=== PATIENT | female | born 1985 ===

== ENCOUNTER 2023-11-09 16:47 | Emergency (ER) | payer OTHER ==
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
[2023-11-09 17:17] VITALS: RESP 18; TEMP 98.6
[2023-11-09] MEDS: KETOROLAC 15 MG/ML 1 ML VIAL IM STA (18:09)
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
[2023-11-09 19:07] VITALS: BP 110/78; PULSE 88
== END 2023-11-09 19:04 | disposition home or self-care (01) ==
LOC: EC 16:47
DX: S80.02XA Contusion of left knee, initial encounter (principal); F17.290 Nicotine dependence, other tobacco product, uncomplicated; F12.90 Cannabis use, unspecified, uncomplicated; Z86.59 Personal history of other mental and behavioral disorders; Z88.8 Allergy status to other drugs, medicaments and biological substances; Z88.5 Allergy status to narcotic agent; V89.2XXA Person injured in unspecified motor-vehicle accident, traffic, initial encounter; Y92.410 Unspecified street and highway as the place of occurrence of the external cause
CPT/HCPCS: 72050; 73562; 99283; 96372; J1885

== ENCOUNTER 2023-11-10 14:53 | Emergency (ER) | payer OTHER ==
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
[2023-11-10 15:35] VITALS: RESP 18; TEMP 98
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
[2023-11-10] MEDS: CYCLOBENZAPRINE 10MG STARTER 3 TAB BTL PO STA (17:55)
[2023-11-10] MEDS: KETOROLAC 15 MG/ML 1 ML VIAL IM STA (17:56)
[2023-11-10] MEDS: IBUPROFEN 600 MG STARTER PACK 4 TAB BTL PO STA (17:56)
[2023-11-10 18:25] VITALS: BP 107/75; PULSE 78
== END 2023-11-10 18:17 | disposition home or self-care (01) ==
LOC: EC 14:53
DX: M79.605 Pain in left leg (principal); F17.290 Nicotine dependence, other tobacco product, uncomplicated; F12.90 Cannabis use, unspecified, uncomplicated; Z86.59 Personal history of other mental and behavioral disorders; Z88.5 Allergy status to narcotic agent; Z88.6 Allergy status to analgesic agent; V89.2XXA Person injured in unspecified motor-vehicle accident, traffic, initial encounter; Y92.410 Unspecified street and highway as the place of occurrence of the external cause
CPT/HCPCS: 73590; 99284; 96372; J1885

== ENCOUNTER 2024-12-16 10:53 | Emergency (ER) | payer OTHER ==
[2024-12-16 11:05] VITALS: RESP 18
--- NOTE | 2024-12-16 11:45 | ED ---
General Adult HPI - General Chief complaint: Recheck/Abnormal Lab/Rx Stated complaint: L foot issue Time Seen by Provider: 12/16/24 11:44 Source: patient, RN notes reviewed Mode of arrival: ambulatory Limitations: no limitations - History of Present Illness Initial comments: 39-year-old female presenting for left foot redness x 2 days. Reports redness, pain, and swelling on ventral aspect of left foot that is spreading proximally. Believes she may have stepped on something as she recently moved and reports there has been glass on the ground however does not recall a specific incident. She recalls a small "pimple" on the bottom of her foot 2 days ago that she squeezed and small amount of white pus was drained. Denies fever, chills, vomiting. No issues with range of motion. Last tetanus greater than 20 years. - Related Data Previous Rx's Medication Instructions Recorded Cephalexin [Keflex] 500 mg PO Q12HR #12 cap 12/22/14 Hydrocodone/Acetaminophen [[place] 1 each PO Q6HR PRN #10 tab 12/22/14 5-325] Cyclobenzaprine [Flexeril] 10 mg PO TID PRN #15 tab 11/10/23 Ibuprofen 600 mg PO Q8H PRN #30 tab 11/10/23 Ibuprofen [Motrin] 800 mg PO Q6HR #30 tab 12/16/24 Allergies Allergy/AdvReac Type Severity Reaction Status Date / Time acetaminophen Allergy Unknown Verified 12/16/24 11:05 [From Tylenol-Codeine #3] codeine phosphate Allergy Unknown Verified 12/16/24 11:05 [From Tylenol-Codeine #3] Review of Systems ROS Statement: Those systems with pertinent positive or pertinent negative responses have been documented in the HPI. ROS Other: All systems not noted in ROS Statement are negative. Past Medical History Past Medical History: No Reported History History of Any Multi-Drug Resistant Organisms: None Reported Additional Past Surgical History / Comment(s): lump in breast and abdomen removed, fx left arm Past Psychological History: Anxiety Smoking Status: Vaper Past Alcohol Use History: Occasional Past Drug Use History: Marijuana General Exam - General Exam Comments Initial Comments: Visual Physical Exam Vital signs reviewed General: Well-appearing, nontoxic, no acute distress. Head: Normocephalic, atraumatic Eyes: PERRLA, EOMI ENT: Airway patent Chest: Nonlabored breathing Skin: No visual rash, normal skin tone Neuro: Alert and oriented 3 Musculoskeletal: No gross abnormalities Limitations: no limitations General appearance: alert, in no apparent distress Head exam: Present: atraumatic, normocephalic, normal inspection Eye exam: Present: normal appearance, PERRL, EOMI. Absent: scleral icterus, conjunctival injection, periorbital swelling Left Ankle exam: Present: normal inspection, full ROM. Absent: tenderness, swelling Foot/Toe exam: Present: full ROM, tenderness, swelling, erythema, puncture wound. Absent: normal inspection (Mild erythema, warmth, and tenderness present on dorsal aspect of distal left foot, no distinct borders, no active drainage. There is a pinpoint puncture wound on the ventral aspect of foot with no active bleeding or drainage), abrasion, laceration Neurovascular tendon exam: Present: no vascular compromise. Absent: pulse deficit, abnormal cap refill, motor deficit, sensory deficit Neurological exam: Present: alert, oriented X3 Psychiatric exam: Present: normal affect, normal mood Skin exam: Present: warm, dry, intact, normal color. Absent: rash Course Vital Signs 12/16/24 11:00 Temperature 97.5 F L Pulse Rate 76 Respiratory 18 Rate Blood Pressure 115/74 O2 Sat by Pulse 98 Oximetry Medical Decision Making - Medical Decision Making I completed the quick note portion of this chart signed Liza Carson PA-C Was pt. sent in by a medical professional or institution ([facility], AIR QUALITY CHEMIST, urgent care, hospital, or [facility]...) When possible be specific @ -No Did you speak to anyone other than the patient for history (EMS, parent, family, police, friend...)? What history was obtained from this source @ -No Did you review nursing and triage notes (agree or disagree)? Why? @ -I reviewed and agree with nursing and triage notes Were old charts reviewed (outside hosp., previous admission, EMS record, old EKG, old radiological studies, urgent care reports/EKG's, [facility] records)? Report findings @ -No old charts were reviewed Differential Diagnosis (chest pain, altered mental status, abdominal pain women, abdominal pain men, vaginal bleeding, weakness, fever, dyspnea, syncope, headache, dizziness, GI bleed, back pain, seizure, CVA, palpatations, mental health, musculoskeletal)? @ -Differential Musculoskeletal Muscular strain, contusion, ligament sprain, fracture, arthritis, septic arthritis, bursitis, cellulitis, muscle spasm, nerve compression, DVT, arterial occlusion, herpes zoster, electrolyte abnormality, tumor.... This is not meant to be in all inclusive list EKG interpreted by me (3pts min.). @ -None X-rays interpreted by me (1pt min.). @ -None done CT interpreted by me (1pt min.). @ -None done U/S interpreted by me (1pt. min.). @ -None done What testing was considered but not performed or refused? (CT, X-rays, U/S, labs)? Why? @ -None What meds were considered but not given or refused? Why? @ -None Did you discuss the management of the patient with other professionals (professionals i.e. , PA, AIR QUALITY CHEMIST, lab, RT, psych nurse, vp digital marketing social media and crm, phone screener, teacher, motorcycle police officer, caser in)? Give summary @ -No Was smoking cessation discussed for >3mins.? @ -No Was critical care preformed (if so, how long)? @ -No Were there social determinants of health that impacted care today? How? (Homelessness, low income, unemployed, alcoholism, drug addiction, transportation, low edu. Level, literacy, decrease access to med. care, penitentiary, rehab)? @ -No Was there de-escalation of care discussed even if they declined (Discuss DNR or withdrawal of care, Hospice)? DNR status @ -No What co-morbidities impacted this encounter? (DM, HTN, Smoking, COPD, CAD, Cancer, CVA, ARF, Chemo, Hep., AIDS, mental health diagnosis, sleep apnea, morbid obesity)? @ -None Was patient admitted / discharged? Hospital course, mention meds given and route, prescriptions, significant lab abnormalities, going to OR and other pertinent info. @ -Discharge. 39-year-old female presenting for left foot swelling x 2 days. Patient is afebrile, nontachycardic. There is an area of erythema, warmth, and tenderness on distal aspect of left foot with pinpoint puncture wound on ventral aspect of left foot. No sign of foreign body. Neurovascularly intact. No fl uctuance or active drainage. Tetanus is updated. Provided with dose of Toradol for supportive care. Lab work remarkable for white blood cell count 10.9 otherwise unremarkable. Will provide outpatient prescription for antibiotic with Pseudomonas coverage due to cellulitis with puncture wound. Ciprofloxacin prescribed to pharmacy. Appropriate return precautions and follow-up care discussed. Case was discussed with my ED attending Dr. Mckeon. Undiagnosed new problem with uncertain prognosis? @ -No Drug Therapy requiring intensive monitoring for toxicity (Heparin, Nitro, Insulin, Cardizem)? @ -No Were any procedures done? @ -No Diagnosis/symptom? @ -Left foot cellulitis, left foot puncture wound Acute, or Chronic, or Acute on Chronic? @ -Acute Uncomplicated (without systemic symptoms) or Complicated (systemic symptoms)? @ -Uncomplicated Side effects of treatment? @ -No Exacerbation, Progression, or Severe Exacerbation? @ -No Poses a threat to life or bodily function? How? (Chest pain, [place], [place], pneumonia, PE, COPD, DKA, ARF, appy, cholecystitis, CVA, Diverticulitis, Homicidal, Suicid al, threat to staff... and all critical care pts) @ -Not at this time - Lab Data Result diagrams: 12/16/24 12:19 12/16/24 12:19 Lab Results 12/16/24 12/16/24 Range/Units 12:19 12:19 WBC 10.9 H (3.8-10.6) k/uL RBC 4.32 (3.80-5.40) m/uL Hgb 13.5 (11.4-16.0) gm/dL Hct 40.7 (34.0-46.0) % MCV 94.2 (80.0-100.0) fL MCH 31.2 (25.0-35.0) pg MCHC 33.1 (31.0-37.0) g/dL RDW 12.6 (11.5-15.5) % Plt Count 318 (150-450) k/uL MPV 7.0 Neutrophils % 84 % Lymphocytes % 9 % Monocytes % 3 % Eosinophils % 2 % Basophils % 0 % Neutrophils # 9.2 H (1.3-7.7) k/uL Lymphocytes # 1.0 (1.0-4.8) k/uL Monocytes # 0.4 (0-1.0) k/uL Eosinophils # 0.2 (0-0.7) k/uL Basophils # 0.0 (0-0.2) k/uL Sodium 140 (137-145) mmol/L Potassium 3.8 (3.5-5.1) mmol/L Chloride 104 (98-107) mmol/L Carbon Dioxide 27 (22-30) mmol/L Anion Gap 9 mmol/L BUN 14 (7-17) mg/dL Creatinine 0.60 (0.52-1.04) mg/dL Est GFR (CKD-EPI)AfAm >90 (>60 ml/min/1.73 sqM) Est GFR (CKD-EPI)NonAf >90 (>60 ml/min/1.73 sqM) Glucose 113 H (74-99) mg/dL Calcium 9.8 (8.4-10.2) mg/dL Total Bilirubin 0.7 (0.2-1.3) mg/dL AST 26 (14-36) U/L ALT 19 (4-34) U/L Alkaline Phosphatase 79 (38-126) U/L Total Protein 7.7 (6.3-8.2) g/dL Albumin 4.6 (3.5-5.0) g/dL Disposition Clinical Impression: Cellulitis of left foot, Puncture wound of foot Disposition: HOME SELF-CARE Condition: Stable Instructions (If sedation given, give patient instructions): Cellulitis (ED), Puncture Wound in the Foot (ED) Additional Instructions: Take ciprofloxacin twice daily for 7 days. Alternate ibuprofen and Tylenol as needed for pain. Please return to the Emergency Department if symptoms worsen or any other concerns. Prescriptions: Ibuprofen [Motrin] 800 mg PO Q6HR #30 tab Is patient prescribed a controlled substance at d/c from ED?: No Referrals: Ga Holden MD [Primary Care Provider] - 1-2 days Time of Disposition: 13:18
[2024-12-16 12:28] LABS: Basophils % (A) 0 %; Eosinophils # (A) 0.2 k/uL (0-0.7); Eosinophils % (A) 2 %; HCT 40.7 % (34.0-46.0); HGB 13.5 gm/dL (11.4-16.0); Lymphocytes % (A) 9 %; MCH 31.2 pg (25.0-35.0); MCHC 33.1 g/dL (31.0-37.0); MCV 94.2 fL (80.0-100.0); Monocytes # (A) 0.4 k/uL (0-1.0); Monocytes % (A) 3 %; Neutrophils # (A) 9.2 k/uL (1.3-7.7); Neutrophils % (A) 84 %; Platelet Count 318 k/uL (150-450); RBC 4.32 m/uL (3.80-5.40); RDW 12.6 % (11.5-15.5); WBC 10.9 k/uL (3.8-10.6)
[2024-12-16 12:38] LABS: ALT 19 U/L (4-34); AST 26 U/L (14-36); African American GFR (CKD) >90 (>60 ml/min/1.73 sqM); Albumin 4.6 g/dL (3.5-5.0); Alkaline Phosphatase 79 U/L (38-126); Anion Gap 9 mmol/L; Blood Urea Nitrogen 14 mg/dL (7-17); Calcium 9.8 mg/dL (8.4-10.2); Carbon Dioxide 27 mmol/L (22-30); Chloride 104 mmol/L (98-107); Glucose 113 mg/dL (74-99); Non-African American GFR(CKD) >90 (>60 ml/min/1.73 sqM); Potassium 3.8 mmol/L (3.5-5.1); Sodium 140 mmol/L (137-145); Total Bilirubin 0.7 mg/dL (0.2-1.3); Total Protein 7.7 g/dL (6.3-8.2)
[2024-12-16] MEDS: DIPH,PERTUS(ACELL)TETVAC-LF 0.5 ML VIAL IM ONE (12:58)
[2024-12-16] MEDS: KETOROLAC 15 MG/ML 1 ML VIAL IVP STA (12:59)
[2024-12-16 13:40] VITALS: BP 111/74; PULSE 62; TEMP 98.4
== END 2024-12-16 13:53 | disposition home or self-care (01) ==
LOC: EC 10:53
DX: S91.332A Puncture wound without foreign body, left foot, initial encounter (principal); L03.116 Cellulitis of left lower limb; F17.290 Nicotine dependence, other tobacco product, uncomplicated; Z23 Encounter for immunization; Z88.5 Allergy status to narcotic agent; Z88.6 Allergy status to analgesic agent; W22.8XXA Striking against or struck by other objects, initial encounter
CPT/HCPCS: 36415; 80053; 85025; 90715; 99283; 96374; 90471; J1885

== ENCOUNTER 2024-12-19 11:00 | Inpatient (IN) | payer OTHER ==
--- NOTE | 2024-12-19 11:28 | ED ---
Extremity Problem HPI - General Chief complaint: Extremity Problem,Nontraumatic Stated complaint: Recheck-L foot issue Time Seen by Provider: 12/19/24 11:28 Source: patient, RN notes reviewed, old records reviewed Mode of arrival: wheelchair - History of Present Illness Initial comments: 39-year-old female presenting for left foot infection. States she believes she may have stepped on something approximately a week ago. She was seen in the ER 3 days ago for same complaint and was placed on ciprofloxacin. Was seen by Dr. Holden yesterday and placed on Augmentin as well. States she is having increased pain, swelling, and redness and is unable to walk on the left foot due to pain. Tetanus was updated 3 days ago. Reports an episode of vomiting this morning, denies fevers. - Related Data Previous Rx's Medication Instructions Recorded Cephalexin [Keflex] 500 mg PO Q12HR #12 cap 12/22/14 Hydrocodone/Acetaminophen [[place] 1 each PO Q6HR PRN #10 tab 12/22/14 5-325] Cyclobenzaprine [Flexeril] 10 mg PO TID PRN #15 tab 11/10/23 Ibuprofen 600 mg PO Q8H PRN #30 tab 11/10/23 Ciprofloxacin HCl [Cipro] 500 mg PO Q12HR 7 Days #14 tablet 12/16/24 Ibuprofen [Motrin] 800 mg PO Q6HR #30 tab 12/16/24 Allergies Allergy/AdvReac Type Severity Reaction Status Date / Time acetaminophen Allergy Unknown Verified 12/19/24 11:13 [From Tylenol-Codeine #3] codeine phosphate Allergy Unknown Verified 12/19/24 11:13 [From Tylenol-Codeine #3] Review of Systems ROS Statement: Those systems with pertinent positive or pertinent negative responses have been documented in the HPI. ROS Other: All systems not noted in ROS Statement are negative. Past Medical History Past Medical History: No Reported History History of Any Multi-Drug Resistant Organisms: None Reported Additional Past Surgical History / Comment(s): lump in breast and abdomen removed, fx left arm Past Psychological History: Anxiety Smoking Status: Vaper Past Alcohol Use History: Occasional Past Drug Use History: Marijuana General Exam General appearance: alert, in no apparent distress Head exam: Present: atraumatic, normocephalic, normal inspection Eye exam: Present: normal appearance, PERRL, EOMI. Absent: scleral icterus, conjunctival injection, periorbital swelling Left Lower Leg exam: Present: normal inspection, full ROM. Absent: tenderness, swelling Ankle exam: Present: normal inspection, full ROM. Absent: tenderness, swelling Foot/Toe exam: Present: full ROM, tenderness, erythema (.), puncture wound. Absent: normal inspection (Puncture wound on ventral aspect of left foot with mild surrounding erythema. There is erythema and warmth present from mid to dis yoselin dorsal foot), swelling, abrasion, laceration Neurovascular tendon exam: Present: no vascular compromise. Absent: pulse deficit, abnormal cap refill, motor deficit, sensory deficit Neurological exam: Present: alert, oriented X3 Psychiatric exam: Present: normal affect, normal mood Skin exam: Present: warm, dry, intact, normal color Course Vital Signs 12/19/24 11:05 Temperature 98 F Pulse Rate 69 Respiratory 18 Rate Blood Pressure 118/70 O2 Sat by Pulse 100 Oximetry Medical Decision Making - Medical Decision Making Was pt. sent in by a medical professional or institution ([facility], GARMENT TAG STRINGER, urgent care, hospital, or half-way...) When possible be specific @ -No Did you speak to anyone other than the patient for history (EMS, parent, family, police, friend...)? What history was obtained from this source @ -No Did you review nursing and triage notes (agree or disagree)? Why? @ -I reviewed and agree with nursing and triage notes Were old charts reviewed (outside hosp., previous admission, EMS record, old EKG, old radiological studies, urgent care reports/EKG's, half-way records)? Report findings @ -Reviewed ER note from 3 days ago including lab work which revealed white blood cell count 11 Differential Diagnosis (chest pain, altered mental status, abdominal pain women, abdominal pain men, vaginal bleeding, weakness, fever, dyspnea, syncope, headache, dizziness, GI bleed, back pain, seizure, CVA, palpatations, mental health, musculoskeletal)? @ -Differential Musculoskeletal Muscular strain, contusion, ligament sprain, fracture, arthritis, septic arth ritis, bursitis, cellulitis, muscle spasm, nerve compression, DVT, arterial occlusion, herpes zoster, electrolyte abnormality, tumor.... This is not meant to be in all inclusive list EKG interpreted by me (3pts min.). @ -None X-rays interpreted by me (1pt min.). @ -X-ray left foot reveals no evidence for osteomyelitis or foreign body CT interpreted by me (1pt min.). @ -None done U/S interpreted by me (1pt. min.). @ -None done What testing was considered but not performed or refused? (CT, X-rays, U/S, labs)? Why? @ -None What meds were considered but not given or refused? Why? @ -None Did you discuss the management of the patient with other professionals (professionals i.e. , PA, GARMENT TAG STRINGER, lab, RT, psych nurse, workers compensation claims assistant, marketing production specialist, teacher, zoology technical officer, continuous pillowcase cutter)? Give summary @ -Dr. Mckeon spoke to Dr. Holden who accepts admission for left foot cellulitis with failed outpatient antibiotic Was smoking cessation discussed for >3mins.? @ -No Was critical care preformed (if so, how long)? @ -No Were there social determinants of health that impacted care today? How? (Homelessness, low income, unemployed, alcoholism, drug addiction, transportation, low edu. Level, literacy, decrease access to med. care, shelter, rehab)? @ -No Was there de-escalation of care discussed even if they declined (Discuss DNR or withdrawal of care, Hospice)? DNR status @ -No What co-morbidities impacted this encounter? (DM, HTN, Smoking, COPD, CAD, Cancer, CVA, ARF, Chemo, Hep., AIDS, mental health diagnosis, sleep apnea, morbid obesity)? @ -None Was patient admitted / discharged? Hospital course, mention meds given and route, prescriptions, significant lab abnormalities, going to OR and other pertinent info. @ - discharge. 39-year-old female presenting for left foot infection. She was placed on ciprofloxacin 3 days ago in the ER and Augmentin yesterday by her PCP however reports symptoms are worsening. Patient is afebrile, nontachycardic. There is a ventral puncture wound with surrounding erythema and erythema on dorsal aspect of foot from mid to distal left foot. Infection seems to be slightly worse than during ER visit 3 days ago. Provided dose of Toradol for pain. Lab work remarkable for leukocytosis of 16 increased from value of 10 3 days ago. CRP 4.9. Lactic acid normal. X-ray left foot reveals no evidence for osteomyelitis or foreign body. Blood cultures were taken and patient was started on IV Zosyn with ID consult. Case was discussed with my ED attending Dr. Mckeon. Undiagnosed new problem with uncertain prognosis? @ -No Drug Therapy requiring intensive monitoring for toxicity (Heparin, Nitro, Insulin, Cardizem)? @ -No Were any procedures done? @ -No Diagnosis/symptom? @ -Left foot cellulitis, failed outpatient treatment Acute, or Chronic, or Acute on Chronic? @ -Acute Uncomplicated (without systemic symptoms) or Complicated (systemic symptoms)? @ -Complicated Side effects of treatment? @ -No Exacerbation, Progression, or Severe Exacerbation? @ -No Poses a threat to life or bodily function? How? (Chest pain, [place], [place], pneumonia, PE, COPD, DKA, ARF, appy, cholecystitis, CVA, Diverticulitis, Homicidal, Suicidal, threat to staff... and all critical care pts) @ -Yes - Lab Data Result diagrams: 12/19/24 11:36 12/19/24 11:36 Lab Results 12/19/24 12/19/24 12/19/24 Range/Units 11:36 11:36 11:36 WBC 16.3 H (3.8-10.6) k/uL RBC 4.23 (3.80-5.40) m/uL Hgb 12.8 (11.4-16.0) gm/dL Hct 39.7 (34.0-46.0) % MCV 93.9 (80.0-100.0) fL MCH 30.3 (25.0-35.0) pg MCHC 32.3 (31.0-37.0) g/dL RDW 12.3 (11.5-15.5) % Plt Count 340 (150-450) k/uL MPV 7.0 Neutrophils % 88 % Lymphocytes % 6 % Monocytes % 4 % Eosinophils % 1 % Basophils % 0 % Neutrophils # 14.4 H (1.3-7.7) k/uL Lymphocytes # 1.0 (1.0-4.8) k/uL Monocytes # 0.6 (0-1.0) k/uL Eosinophils # 0.2 (0-0.7) k/uL Basophils # 0.0 (0-0.2) k/uL Sodium 137 (137-145) mmol/L Potassium 3.4 L (3.5-5.1) mmol/L Chloride 100 (98-107) mmol/L Carbon Dioxide 26 (22-30) mmol/L Anion Gap 11 mmol/L BUN 10 (7-17) mg/dL Creatinine 0.94 (0.52-1.04) mg/dL Est GFR (CKD-EPI)AfAm 90 (>60 ml/min/1.73 sqM) Est GFR (CKD-EPI)NonAf 78 (>60 ml/min/1.73 sqM) Glucose 122 H (74-99) mg/dL Plasma Lactic Acid [place] 1.6 (0.7-2.0) mmol/L Calcium 10.0 (8.4-10.2) mg/dL Total Bilirubin 0.7 (0.2-1.3) mg/dL AST 25 (14-36) U/L ALT 15 (4-34) U/L Alkaline Phosphatase 84 (38-126) U/L C-Reactive Protein 4.9 H (<1.0) mg/dL Total Protein 7.7 (6.3-8.2) g/dL Albumin 4.7 (3.5-5.0) g/dL Disposition Clinical Impression: Cellulitis of left foot Disposition: ADMITTED IP TO THIS HOSP Referrals: Ga Hloden MD [Primary Care Provider] - 1-2 days Time of Disposition: 13:03
[2024-12-19] MEDS: KETOROLAC 15 MG/ML 1 ML VIAL IVP STA (11:42)
[2024-12-19 11:49] LABS: Basophils % (A) 0 %; Eosinophils # (A) 0.2 k/uL (0-0.7); Eosinophils % (A) 1 %; HCT 39.7 % (34.0-46.0); HGB 12.8 gm/dL (11.4-16.0); Lymphocytes % (A) 6 %; MCH 30.3 pg (25.0-35.0); MCHC 32.3 g/dL (31.0-37.0); MCV 93.9 fL (80.0-100.0); Monocytes # (A) 0.6 k/uL (0-1.0); Monocytes % (A) 4 %; Neutrophils # (A) 14.4 k/uL (1.3-7.7); Neutrophils % (A) 88 %; Platelet Count 340 k/uL (150-450); RBC 4.23 m/uL (3.80-5.40); RDW 12.3 % (11.5-15.5); WBC 16.3 k/uL (3.8-10.6)
[2024-12-19 12:08] LABS: ALT 15 U/L (4-34); AST 25 U/L (14-36); African American GFR (CKD) 90 (>60 ml/min/1.73 sqM); Albumin 4.7 g/dL (3.5-5.0); Alkaline Phosphatase 84 U/L (38-126); Anion Gap 11 mmol/L; Blood Urea Nitrogen 10 mg/dL (7-17); C Reactive Protein 4.9 mg/dL (<1.0); Carbon Dioxide 26 mmol/L (22-30); Chloride 100 mmol/L (98-107); Glucose 122 mg/dL (74-99); Non-African American GFR(CKD) 78 (>60 ml/min/1.73 sqM); Potassium 3.4 mmol/L (3.5-5.1); Sodium 137 mmol/L (137-145); Total Bilirubin 0.7 mg/dL (0.2-1.3); Total Protein 7.7 g/dL (6.3-8.2)
--- NOTE | 2024-12-19 12:52 | XR ---
EXAMINATION TYPE: XR foot complete LT DATE OF EXAM: 12/19/2024 CLINICAL INDICATION: Female, 39 years old with history of left foot infection, pain. Pain and swellin g and redness at base of fourth toe TECHNIQUE: Frontal, lateral, and oblique images of the left foot are obtained. COMPARISON: None FINDINGS: There is no acute fracture/dislocation evident in the left foot. No suspicious focal bony destruction. The joint spaces in the left foot appear within normal limits. The overlying soft tiss ue appears unremarkable. IMPRESSION: There is no convincing radiographic evidence for acute osteomyelitis. [facility], , 12/19/2024 12:50 PM
[2024-12-19] MEDS ORDERED: IBUPROFEN 400 MG TAB PO PRN (12:57)
[2024-12-19] MEDS ORDERED: NALOXONE 0.4 MG/ML 1 ML VIAL IV PRN (12:57)
[2024-12-19] MEDS: PIPERACILLIN-TAZOBACTAM 3.375 GM in SODIUM CHLORIDE 0.9% 100 ML IVPB STA (13:25)
[2024-12-19] MEDS: SODIUM CHLORIDE 0.9% 1,000 ML IV SCH (14:28)
[2024-12-19] MEDS: KETOROLAC 15 MG/ML 1 ML VIAL IVP PRN (15:46)
[2024-12-19] MEDS ORDERED: VANCOMYCIN IV PER PHARMACY 1 EACH MISC MISCELLANE PRN (17:57)
[2024-12-19 19:55] LABS: Erythrocyte Sedimentation Rate 33 mm/Hr (0-20)
[2024-12-19] MEDS: VANCOMYCIN 750 MG in SODIUM CHLORIDE 0.9% 250 ML IVPB SCH (20:00)
--- NOTE | 2024-12-19 20:21 | CONS ---
DATE OF CONSULTATION: 12/19/2024 HISTORY OF PRESENT ILLNESS: This is a 39-year-old white female patient, who came to the emergency room with history of pain in the left foot, plantar and dorsum aspect for the last few days. The patient came into the ER few days ago and she was sent home on antibiotic. Today again, she came and with more discomfort and pain. MEDICAL HISTORY: No history of diabetes or any heart problem. PERSONAL HISTORY: Allergy to Tylenol. PHYSICAL EXAMINATION: GENERAL: On examination, thee patient was seen in the emergency room. NECK: Supple. No bruit appreciated. CHEST: Clear to auscultation. CARDIAC: First and second sounds present. ABDOMEN: Soft, nontender. VASCULAR: Brachial, radial, and femoral pulses are palpable. Dorsalis pedis and posterior tibialis palpable. Left foot has marked redness on the dorsal aspect of the foot, involving the third and fourth toe, and also, there is a callus which is infected, involving between the webspace of third and fourth toe. The patient was seen by the Infectious Disease and started on antibiotic. The patient just ate her dinner. We kept her n.p.o. midnight. The patient will have a surgical debridement and I and D of the wound, possible third toe amputation. Risks and complications discussed. MMODL / IJN: [id number] / [facility]AW[facility]
--- NOTE | 2024-12-19 23:11 | P.CONS ---
History of Present Illness - Reason for Consult Consult date: 12/19/24 Left foot cellulitis failed outpatient therapy Requesting physician: Liza Carson - Chief Complaint Left foot pain swelling redness x 3 days - History of Present Illness Patient is a 39-year-old female with a past medical history significant for anxiety apparently has developed a callus on the plantar aspect of the left foot patient describing it to more of a blister which she tried to marilee it herself and there was some drainage of some greenish material kaur bsequently the patient noticed to have swelling and redness on the dorsum aspect of the left foot as well as pain for the patient has been evaluated in the ER about 3 days ago and was started on Cipro subsequently has been eval by her primary care physician and Augmentin was added however the patient did have increasing pain swelling and redness and unable to walk on the left foot because of the pain for the patient presented to hospital patient described the pain to be sharp throbbing moderate to severe intensity especially when she walks on it denies any further drainage denies high-grade fever on presentation to the hospital patient did have a low-grade fever of 99 degrees for night patient was not tachycardic hypotensive or hypoxic patient did have white count of 16.3 with a left shift creatinine 0.94 liver enzymes are normal patient did have x-ray of the foot no convincing radiographic evidence of acute osteomyelitis or any foreign body patient has received dose of Zosyn in the ER infectious disease was consulted for further management of antibiotic therapy Review of Systems Positive point and negatives has been mentioned in the HPI, complete review of systems was performed and all other systems are negative Past Medical History Past Medical History: No Reported History History of Any Multi-Drug Resistant Organisms: None Reported Additional Past Surgical History / Comment(s): lump in breast and abdomen removed, fx left arm Past Psychological History: Anxiety Smoking Status: Vaper Past Alcohol Use History: Occasional Past Drug Use History: Marijuana Medications and Allergies Home Medications Medication Instructions Recorded Confirmed Type Amoxic-Pot Clav 875-125Mg 1 tab PO BID 12/19/24 12/19/24 History [Augmentin 875-125] traMADol HCL 50 mg PO Q8H PRN 12/19/24 12/19/24 History Allergies Allergy/AdvReac Type Severity Reaction Status Date / Time acetaminophen Allergy Unknown Verified 12/19/24 13:28 [From Tylenol-Codeine #3] codeine phosphate Allergy Unknown Verified 12/19/24 13:28 [From Tylenol-Codeine #3] Physical Exam Vitals: Vital Signs Temp Pulse Resp BP Pulse Ox 12/19/24 13:27 99 F 61 15 97/63 97 12/19/24 11:05 98 F 69 18 118/70 100 Intake and Output 12/19/24 12/19/24 12/19/24 06:59 14:59 22:59 Other: Weight 45.359 kg GENERAL DESCRIPTION: Middle-age female lying in bed, no distress. No tachypnea or accessory muscle of respiration use. HEENT: Shows Pallor , no scleral icterus. Oral mucous membrane is dry. No p haryngeal erythema or thrush NECK: Trachea central, no thyromegaly. LUNGS: Unlabored breathing. Clear to auscultation anteriorly. No wheeze or crackle. HEART: S1, S2, regular rate and rhythm. No loud murmur ABDOMEN: Soft, no tenderness , guarding or rigidity, no organomegaly EXTREMITIES: Left foot did have a blister on the plantar aspect and swelling redness and tenderness on the dorsal aspect no drainage SKIN: No rash, no masses palpable. NEUROLOGICAL: The patient is awake, alert, oriented x3, mood and affect normal. Results CBC & Chem 7: 12/19/24 11:36 12/19/24 11:36 Labs: Abnormal Lab Results - Last 24 Hours (Table) 12/19/24 12/19/24 Range/Units 11:36 11:36 WBC 16.3 H (3.8-10.6) k/uL Neutrophils # 14.4 H (1.3-7.7) k/uL Potassium 3.4 L (3.5-5.1) mmol/L Glucose 122 H (74-99) mg/dL C-Reactive Protein 4.9 H (<1.0) mg/dL Assessment and Plan (1) Foot abscess, left Current Visit: Yes Status: Acute Code(s): L02.612 - CUTANEOUS ABSCESS OF LEFT FOOT SNOMED Code(s): 54458645683245248 (2) Failure of outpatient treatment Current Visit: Yes Status: Acute Code(s): Z78.9 - OTHER SPECIFIED HEALTH STATUS SNOMED Code(s): 954529162 (3) Cellulitis of left foot Current Visit: Yes Status: Acute Code(s): L03.116 - CELLULITIS OF LEFT LOWER LIMB SNOMED Code(s): 78313712016608169 (4) Puncture wound of foot Current Visit: No Status: Acute Code(s): S91.339A - PUNCTURE WOUND WITHOUT FOREIGN BODY, UNSP FOOT, INIT ENCNTR SNOMED Code(s): 19878085 Plan: 1patient presented hospital with left foot pain swelling and redness failing outpatient oral Cipro and Augmentin therapy and there is concern for possible involvement of an abscess on the dorsum aspect as well as on the plantar aspect at the base of the third toe which started as a blister that the patient has ruptured herself and drainage of some purulent material 2-patient will need surgical drainage of this abscess and culture for which vascular surgery will be consulted 3-we will empirically cover the patient with the vancomycin and cefepime while waiting for the culture to finalize Multiple question concern answered We will follow on clinical condition and cultures to further adjust medication if needed Thank you for this consultation we will follow the patient along with you Dictation was produced using [employer] dictation software. please excuse any grammatical, word or spelling errors. Time with Patient: Greater than 30
[2024-12-19] MEDS: CEFEPIME 2 GM in SODIUM CHLORIDE 0.9% 100 ML IVPB SCH (23:43)
[2024-12-19] MEDS: traMADol 50 MG TAB PO PRN (23:57)
[2024-12-20] MEDS: IV FLUID CONTINUATION 1,000 ML IV ONE (06:58)
[2024-12-20] MEDS ORDERED: fentaNYL (PF) 50 MCG/ML 2 ML AMP ONE (07:00)
[2024-12-20] MEDS ORDERED: PROPOFOL 10 MG/ML 20 ML VIAL IV ONE (07:00)
[2024-12-20] MEDS ORDERED: MIDAZOLAM 2 MG/2 ML VIAL ONE (07:00)
[2024-12-20] MEDS ORDERED: KETAMINE HCL IN 0.9 % NACL 50 MG/5 ML SYRINGE ONE (07:00)
[2024-12-20] MEDS: LIDOCAINE 1% INJ 10MG/ML (20 ML MDV) SQ ONE ×2 (07:18)
[2024-12-20] MEDS: LACTATED RINGERS 1,000 ML IV ONE (07:32)
[2024-12-20] MEDS: HYDROmorphone 0.5 MG/0.5 ML SYRINGE IVP STA (08:15)
--- NOTE | 2024-12-20 08:42 | OP ---
OPERATIVE REPORT DATE OF SERVICE : PREOPERATIVE DIAGNOSIS: Abscess of web space between 2nd and 3rd, left foot. This patient came to the emergency room. The patient had an infected callus on the plantar aspect of the foot and dorsal aspect of the foot. DESCRIPTION OF PROCEDURE: The patient was brought to the operating room. Foot was prepped and drapes were applied in a sterile manner. 1% lidocaine with IV sedation. Incision was made between the web space, deepened through skin, fat and fascia. On opening the web space, pus came out which was drained and we took the culture, and there was some devitalized tissue between the web space, which was excised with sharp knife, which was also sent for deep culture. Wound was copiously irrigated with hydrogen peroxide and saline. Hemostasis was well controlled and wound was packed with Silver Rope and pressure dressing applied. The patient tolerated the procedure well and transferred to the recovery room in satisfactory condition. MMODL / IJN: [id number] /
[2024-12-20 11:42] LABS: Basophils % (A) 0 %; Eosinophils # (A) 0.1 k/uL (0-0.7); Eosinophils % (A) 1 %; HCT 36.2 % (34.0-46.0); HGB 11.4 gm/dL (11.4-16.0); Lymphocytes # (A) 1.6 k/uL (1.0-4.8); Lymphocytes % (A) 13 %; MCH 30.6 pg (25.0-35.0); MCHC 31.5 g/dL (31.0-37.0); Mean Platelet Volume 7.3; Monocytes # (A) 0.6 k/uL (0-1.0); Monocytes % (A) 4 %; Neutrophils # (A) 10.1 k/uL (1.3-7.7); Neutrophils % (A) 80 %; Platelet Count 293 k/uL (150-450); RBC 3.74 m/uL (3.80-5.40); RDW 12.8 % (11.5-15.5); WBC 12.6 k/uL (3.8-10.6)
[2024-12-20 11:52] LABS: African American GFR (CKD) >90 (>60 ml/min/1.73 sqM); Anion Gap 6 mmol/L; Blood Urea Nitrogen 13 mg/dL (7-17); Calcium 8.7 mg/dL (8.4-10.2); Carbon Dioxide 26 mmol/L (22-30); Chloride 106 mmol/L (98-107); Glucose 86 mg/dL (74-99); Non-African American GFR(CKD) >90 (>60 ml/min/1.73 sqM); Potassium 3.5 mmol/L (3.5-5.1); Sodium 138 mmol/L (137-145)
[2024-12-20] MEDS ORDERED: VANCOMYCIN 750 MG in SODIUM CHLORIDE 0.9% 250 ML IVPB SCH (13:00)
--- NOTE | 2024-12-20 20:24 | P.PN ---
Subjective Progress Note Date: 12/20/24 Principal diagnosis: Reason for follow-up is left foot abscess Patient is a 39-year-old female with a past medical history significant for anxiety presented to the hospital with increasing pain swelling redness to the left foot has been diagnosed with a abscess failing outpatient treatment status post surgical drainage on 12/20/2024. On today's evaluation that is 12/20/2024,the patient remains to be afebrile, patient is on room air not requiring supplemental oxygen and denies any shortness of breath no chest pain or cough.Patient denies having any nausea or vomiting, no abdominal pain and no diarrhea, pain to the left foot is currently controlled with pain medication. Patient white count is down to 12.6 creatinine 0.68 cultures currently pending Objective - Vital Signs Vital signs: Vital Signs Temp 98.3 F 12/20/24 15:00 Pulse 79 12/20/24 15:00 Resp 16 12/20/24 15:00 BP 105/70 12/20/24 15:00 Pulse Ox 97 12/20/24 15:00 FiO2 Intake & Output 12/20/24 12/20/24 12/21/24 06:59 18:59 06:59 Intake Total 360 1550 Output Total 0 20 Balance 360 1530 Weight 45.359 kg Intake: IV 50 1550 Cefepime 2 gm In Sodium 100 Chloride 0.9% 100 ml @ 25 mls/hr IVPB Q8HR [facility] Rx# :[id number] Sodium Chloride 0.9% 1, 200 000 ml @ 20 mls/hr IV . Q24H [facility] Rx#:[id number] Vancomycin 750 mg In 250 Sodium Chloride 0.9% 250 ml @ 125 mls/hr IVPB Q12H [facility] Rx#:[id number] Intake, IV Titration 310 Amount Sodium Chloride 0.9% 1, 60 000 ml @ 20 mls/hr IV . Q24H [facility] Rx#:[id number] Vancomycin 750 mg In 250 Sodium Chloride 0.9% 250 ml @ 125 mls/hr IVPB Q16H [facility] Rx#:[id number] Output: Urine 0 Post Void Residual 0 Estimated Blood Loss 20 Other: # Bowel Movements 0 - Exam GENERAL DESCRIPTION: Middle-age female lying in bed in no distress RESPIRATORY SYSTEM: Unlabored breathing , clear to auscultation anteriorly HEART: S1 S2 regular rate and rhythm , ABDOMEN: Soft , no tenderness EXTREMITIES: Left foot is currently dressed - Labs CBC & Chem 7: 12/20/24 11:23 12/20/24 11:23 Labs: Abnormal Lab Results - Last 24 Hours (Table) 12/20/24 Range/Units 11:23 WBC 12.6 H (3.8-10.6) k/uL RBC 3.74 L (3.80-5.40) m/uL Neutrophils # 10.1 H (1.3-7.7) k/uL Assessment and Plan (1) Foot abscess, left Current Visit: Yes Status: Acute Code(s): L02.612 - CUTANEOUS ABSCESS OF LEFT FOOT SNOMED Code(s): 49351997542943267 (2) Failure of outpatient treatment Current Visit: Yes Status: Acute Code(s): Z78.9 - OTHER SPECIFIED HEALTH STATUS SNOMED Code(s): 495773039 (3) Cellulitis of left foot Current Visit: Yes Status: Acute Code(s): L03.116 - CELLULITIS OF LEFT LOWER LIMB SNOMED Code(s): 38141563496363731 (4) Puncture wound of foot Current Visit: No Status: Acute Code(s): S91.339A - PUNCTURE WOUND WITHOUT FOREIGN BODY, UNSP FOOT, INIT ENCNTR SNOMED Code(s): 52984230 Plan: 1patient presented hospital with left foot pain swelling and redness failing outpatient oral Cipro and Augmentin therapy and there is concern for possible development of an abscess on the dorsum aspect as well as on the plantar aspect at the base of the third toe which started as a blister that the patient has ruptured herself and drainage of some purulent material 2-patient is status post surgical drainage of this abscess and culture has been obtained results will be followed 3-patient will be treated with the vancomycin and cefepime while waiting for the culture to finalize Family the bedside question concern was with Dictation was produced using [employer] software. please excuse any grammatical, word or spelling errors. Time with Patient: Less than 30
--- NOTE | 2024-12-20 22:25 | HP ---
HISTORY AND PHYSICAL CHIEF COMPLAINT: Pain, swelling, redness, and infection in the left foot. HISTORY OF PRESENT ILLNESS: This is the first admission for this 39-year-old white female. She was in the emergency room last weekend with an infection in her left foot between her 2nd and 3rd toes. She was placed on a quinolone and followed up in the office where she thought the foot was not getting any better. She was switched over to Augmentin 875 and told to take 2 that night and come in the next day. When she did, the redness had expanded and moved up the dorsum of the foot and she had also developed a fluctuant area between the toes. This all started with a split in the skin on the sole of the foot. She was sent to the emergency room for admission for IV antibiotics and surgical consult. REVIEW OF SYSTEMS: She has had no fever, chills, etc. She is not diabetic. Past medical history, family history, personal and social histories are unremarkable otherwise. ALLERGIES: She is allergic to Tylenol #3. MEDICATIONS: Include the Augmentin. SOCIAL HISTORY: She does smoke. PHYSICAL EXAMINATION: VITAL SIGNS: Normal. HEAD, EARS, EYES, NOSE, MOUTH, AND THROAT: Normal. CHEST: Clear. CARDIAC: Normal. ABDOMEN: Soft, nontender. EXTREMITIES: Normal except for the left foot where she had a fluctuant area between the toes of the left foot and cellulitis extending up the dorsum of the foot. NEUROLOGICAL: She is intact. She is admitted to the hospital with diagnoses of abscess and cellulitis of the left foot. PLAN: 1. Bedrest. 2. IV fluids. 3. IV antibiotics. 4. Consult with Surgery. MMODL / IJN: [id number] /
--- NOTE | 2024-12-20 23:01 | PN ---
PROGRESS NOTE DATE OF SERVICE: 12/20/2024 CHIEF COMPLAINT: Cellulitis and abscess of the left foot. HISTORY OF PRESENT ILLNESS: This lady is doing well. The foot was drained of a large abscess yesterday. She is on antibiotics. PHYSICAL EXAMINATION: CHEST: Clear. CARDIAC: Normal. EXTREMITIES: Foot is wrapped. IMPRESSION: Status post drainage of abscess of the left foot with cellulitis. PLAN: Continue with IV fluids and antibiotics. MMODL / IJN: [id number] /
[2024-12-20] MEDS: VANCOMYCIN 750 MG in SODIUM CHLORIDE 0.9% 250 ML IVPB SCH (23:41)
--- NOTE | 2024-12-21 15:06 | P.PN ---
Subjective Progress Note Date: 12/21/24 Principal diagnosis: Reason for follow-up is left foot abscess Patient is a 39-year-old female with a past medical history significant for anxiety presented to the hospital with increasing pain swelling redness to the left foot has been diagnosed with a abscess failing outpatient treatment status post surgical drainage on 12/20/2024. On today's evaluation that is 12/21/2024, the patient continues to be afebrile, the patient is on room air and breathing comfortably, the Pt denies having any chest pain or cough, the patient denies having any abdominal pain no vomiting or any diarrhea pain to the left foot is currently controlled. No new lab has been obtained today culture growing Staph aureus Objective - Vital Signs Vital signs: Vital Signs Temp 98.9 F 12/21/24 07:15 Pulse 57 L 12/21/24 07:40 Resp 16 12/21/24 07:40 BP 112/74 12/21/24 07:15 Pulse Ox 97 12/21/24 07:15 FiO2 Intake & Output 12/20/24 12/21/24 12/21/24 18:59 06:59 18:59 Intake Total 1550 Output Total 20 Balance 1530 Intake: IV 1550 Cefepime 2 gm In Sodium 100 Chloride 0.9% 100 ml @ 25 mls/hr IVPB Q8HR [facility] Rx# :[id number] Sodium Chloride 0.9% 1, 200 000 ml @ 20 mls/hr IV . Q24H [facility] Rx#:[id number] Vancomycin 750 mg In 250 Sodium Chloride 0.9% 250 ml @ 125 mls/hr IVPB Q12H [facility] Rx#:[id number] Output: Estimated Blood Loss 20 Other: Voiding Method Toilet Toilet # Voids 1 - Exam GENERAL DESCRIPTION: Middle-age female lying in bed in no distress RESPIRATORY SYSTEM: Unlabored breathing , clear to auscultation anteriorly HEART: S1 S2 regular rate and rhythm , ABDOMEN: Soft , no tenderness EXTREMITIES: Left foot wound between the second and third toe deep but overall swelling redness has decreased no purulent drainage - Labs CBC & Chem 7: 12/20/24 11:23 12/20/24 11:23 Labs: Microbiology - Last 24 Hours (Table) 12/20/24 07:45 Gram Stain - Preliminary Foot - Left Tissue Culture - Preliminary Presumptive Staph aureus Assessment and Plan (1) Foot abscess, left Current Visit: Yes Status: Acute Code(s): L02.612 - CUTANEOUS ABSCESS OF LEFT FOOT SNOMED Code(s): 97213394137176225 (2) Failure of outpatient treatment Current Visit: Yes Status: Acute Code(s): Z78.9 - OTHER SPECIFIED HEALTH STATUS SNOMED Code(s): 488882123 (3) Cellulitis of left foot Current Visit: Yes Status: Acute Code(s): L03.116 - CELLULITIS OF LEFT LOWER LIMB SNOMED Code(s): 38576245268211670 (4) Puncture wound of foot Current Visit: No Status: Acute Code(s): S91.339A - PUNCTURE WOUND WITHOUT FOREIGN BODY, UNSP FOOT, INIT ENCNTR SNOMED Code(s): 18146869 Plan: 1patient presented hospital with left foot pain swelling and redness failing outpatient oral Cipro and Augmentin therapy and there is concern for possible development of an abscess on the dorsum aspect as well as on the plantar aspect at the base of the third toe which started as a blister that the patient has ruptured herself and drainage of some purulent material 2-patient is status post surgical drainage of this abscess and culture has been obtained which are currently growing Staph aureus with sensitivities pending 3-patient current being treated with the vancomycin and cefepime while waiting for the culture to finalize treatment to determine discharge antibiotics Family the bedside question concern was with Dictation was produced using [employer] dictation software. please excuse any grammatical, word or spelling errors. Time with Patient: Less than 30
[2024-12-21 15:53] VITALS: BMI 20.2
[2024-12-21] MEDS: HYDROcodone/APAP 5-325MG 1 EACH TAB PO STA (22:23)
[2024-12-22] MEDS: COLLAGENASE 250 UNIT/GM OINTMENT 30 GM TUBE TOPICAL SCH (09:59)
--- NOTE | 2024-12-22 10:00 | P.PN ---
Progress Note - Text 39-year-old white female had abscess left foot between webspace we did the I&D patient is on IV antibiotic under care of infectious disease today will change dressing the use Santyl cream between the webspace second and third toe stick applied patient tarted the procedure well patient complains a lot of pain in the foot. No drainage noted next dressing will be changed on Tuesday
[2024-12-22 12:13] LABS: African American GFR (CKD) >90 (>60 ml/min/1.73 sqM); Non-African American GFR(CKD) >90 (>60 ml/min/1.73 sqM)
[2024-12-22] MEDS: VANCOMYCIN TROUGH DUE 1 EACH MISC MISCELLANE ONE (12:44)
--- NOTE | 2024-12-22 15:11 | P.PN ---
Subjective Progress Note Date: 12/22/24 Principal diagnosis: Reason for follow-up is left foot abscess Patient is a 39-year-old female with a past medical history significant for anxiety presented to the hospital with increasing pain swelling redness to the left foot has been diagnosed with a abscess failing outpatient treatment status post surgical drainage on 12/20/2024. On today's evaluation that is 12/22/2024, patient did not have any fever and denies any chills, patient is breathing comfortably on room air, patient with no chest pain or cough patient did not have any abdominal pain nausea vomiting or any loose stools pain to the left foot is currently controlled. Patient did have a creatinine 0.64 Vanco trough low at 5.9 culture with MSSA and urine culture negative Objective - Vital Signs Vital signs: Vital Signs Temp 98.5 F 12/22/24 07:24 Pulse 59 L 12/22/24 08:00 Resp 17 12/22/24 08:00 BP 107/71 12/22/24 07:24 Pulse Ox 96 12/22/24 07:24 FiO2 Intake & Output 12/21/24 12/22/24 12/22/24 18:59 06:59 18:59 Intake Total 1260 850 Balance 1260 850 Weight 45.359 kg Intake: IV 160 Cefepime 2 gm In Sodium 100 Chloride 0.9% 100 ml @ 25 mls/hr IVPB Q8HR [facility] Rx# :[id number] Sodium Chloride 0.9% 1, 60 000 ml @ 20 mls/hr IV . Q24H [facility] Rx#:[id number] Intake, IV Titration 250 Amount Vancomycin 750 mg In 250 Sodium Chloride 0.9% 250 ml @ 125 mls/hr IVPB Q12H [facility] Rx#:[id number] Oral 850 850 Other: Voiding Method Toilet Toilet # Voids 2 # Bowel Movements 1 - Exam GENERAL DESCRIPTION: Middle-age female lying in bed in no distress RESPIRATORY SYSTEM: Unlabored breathing , clear to auscultation anteriorly HEART: S1 S2 regular rate and rhythm , ABDOMEN: Soft , no tenderness EXTREMITIES: Left foot wound currently dressed - Labs CBC & Chem 7: 12/20/24 11:23 12/22/24 11:16 Labs: Microbiology - Last 24 Hours (Table) 12/20/24 07:45 Gram Stain - Final Foot - Left Wound Culture - Final Staphylococcus aureus 12/20/24 07:45 Gram Stain - Final Foot - Left Tissue Culture - Final Staphylococcus aureus 12/19/24 13:21 Blood Culture - Preliminary Blood 12/19/24 11:37 Blood Culture - Preliminary Blood Assessment and Plan (1) Foot abscess, left Current Visit: Yes Status: Acute Code(s): L02.612 - CUTANEOUS ABSCESS OF LEFT FOOT SNOMED Code(s): 10624760151256571 (2) Failure of outpatient treatment Current Visit: Yes Status: Acute Code(s): Z78.9 - OTHER SPECIFIED HEALTH STATUS SNOMED Code(s): 058065847 (3) Cellulitis of left foot Current Visit: Yes Status: Acute Code(s): L03.116 - CELLULITIS OF LEFT LOWER LIMB SNOMED Code(s): 17189565048423922 (4) Puncture wound of foot Current Visit: No Status: Acute Code(s): S91.339A - PUNCTURE WOUND WITHOUT FOREIGN BODY, UNSP FOOT, INIT ENCNTR SNOMED Code(s): 84660180 Plan: 1patient presented hospital with left foot pain swelling and redness failing outpatient oral Cipro and Augmentin therapy and there is concern for possible d evelopment of an abscess on the dorsum aspect as well as on the plantar aspect at the base of the third toe which started as a blister that the patient has ruptured herself and drainage of some purulent material 2-patient is status post surgical drainage of this abscess and culture has been obtained which are currently growing MSSA 3-I will discontinue vancomycin and cefepime and start the patient on cefazolin 2 g every 8 hours and see clinical response Dictation was produced using [employer] dictation software. please excuse any grammatical, word or spelling errors. Time with Patient: Less than 30
[2024-12-22] MEDS: HYDROmorphone 0.5 MG/0.5 ML SYRINGE IVP PRN (19:52)
[2024-12-22] MEDS: HYDROcodone/APAP 5-325MG 1 EACH TAB PO PRN (23:54)
--- NOTE | 2024-12-23 13:00 | P.PN ---
Subjective Progress Note Date: 12/23/24 Principal diagnosis: Reason for follow-up is left foot abscess Patient is a 39-year-old female with a past medical history significant for anxiety presented to the hospital with increasing pain swelling redness to the left foot has been diagnosed with a abscess failing outpatient treatment status post surgical drainage on 12/20/2024. On today's evaluation that is 12/23/2024, Patient is afebrile patient is currently on room air and denies having any shortness of breath, the patient denies any chest pain or cough, the patient denies any nausea vomiting did not have any abdominal pain and no diarrhea, pain to the left foot is currently controlled. No new lab has been obtained today and blood cultures negative Objective - Vital Signs Vital signs: Vital Signs Temp 98.0 F 12/23/24 07:02 Pulse 74 12/23/24 07:25 Resp 16 12/23/24 07:25 BP 94/63 12/23/24 07:02 Pulse Ox 95 12/23/24 07:02 FiO2 Intake & Output 12/22/24 12/23/24 12/23/24 18:59 06:59 18:59 Intake Total 1850 Output Total 3 Balance 1850 -3 Intake: Intake, IV Titration 350 Amount Cefepime 2 gm In Sodium 100 Chloride 0.9% 100 ml @ 25 mls/hr IVPB Q8HR [facility] Rx# :[id number] Vancomycin 750 mg In 250 Sodium Chloride 0.9% 250 ml @ 125 mls/hr IVPB Q12H [facility] Rx#:[id number] Oral 1500 Output: Urine 3 Other: Voiding Method Toilet Toilet # Voids 3 0 - Exam GENERAL DESCRIPTION: Middle-age female lying in bed in no distress RESPIRATORY SYSTEM: Unlabored breathing , clear to auscultation anteriorly HEART: S1 S2 regular rate and rhythm , ABDOMEN: Soft , no tenderness EXTREMITIES: Left foot wound currently dressed - Labs CBC & Chem 7: 12/20/24 11:23 12/22/24 11:16 Labs: Microbiology - Last 24 Hours (Table) 12/20/24 07:45 Anaerobic Culture - Preliminary Foot - Left 12/20/24 07:45 Anaerobic Culture - Preliminary Foot - Left 12/19/24 13:21 Blood Culture - Preliminary Blood 12/19/24 11:37 Blood Culture - Preliminary Blood 12/20/24 07:45 Gram Stain - Final Foot - Left Wound Culture - Final Staphylococcus aureus 12/20/24 07:45 Gram Stain - Final Foot - Left Tissue Culture - Final Staphylococcus aureus Assessment and Plan (1) Foot abscess, left Current Visit: Yes Status: Acute Code(s): L02.612 - CUTANEOUS ABSCESS OF L EFT FOOT SNOMED Code(s): 20895591649916893 (2) Failure of outpatient treatment Current Visit: Yes Status: Acute Code(s): Z78.9 - OTHER SPECIFIED HEALTH STATUS SNOMED Code(s): 828218763 (3) Cellulitis of left foot Current Visit: Yes Status: Acute Code(s): L03.116 - CELLULITIS OF LEFT LOWER LIMB SNOMED Code(s): 55825951559277377 (4) Puncture wound of foot Current Visit: No Status: Acute Code(s): S91.339A - PUNCTURE WOUND WITHOUT FOREIGN BODY, UNSP FOOT, INIT ENCNTR SNOMED Code(s): 98918430 Plan: 1patient presented hospital with left foot pain swelling and redness failing outpatient oral Cipro and Augmentin therapy and there is concern for possible development of an abscess on the dorsum aspect as well as on the plantar aspect at the base of the third toe which started as a blister that the patient has ruptured herself and drainage of some purulent material 2-patient is status post surgical drainage of this abscess and culture has been obtained which are currently growing MSSA 3-patient to continue with cefazolin 2 g every 8 hours and await arrangement for outpatient IV antibiotics before placement of the line Dictation was produced using [employer] dictation software. please excuse any grammatical, word or spelling errors.
[2024-12-23] MEDS: ONDANSETRON 4 MG/2 ML VIAL IVP PRN (17:57)
[2024-12-23 18:22] LABS: Glucose,Whole Blood 120 mg/dL (70-110)
[2024-12-23] MEDS: ALPRAZolam 0.25 MG TAB PO STA (18:35)
[2024-12-23] MEDS: SODIUM CHLORIDE 0.9% 1,000 ML IV ONE (18:36)
[2024-12-23 18:40] LABS: Basophils % (A) 0 %; Eosinophils # (A) 0.2 k/uL (0-0.7); Eosinophils % (A) 2 %; HCT 36.8 % (34.0-46.0); HGB 12.2 gm/dL (11.4-16.0); Lymphocytes # (A) 2.6 k/uL (1.0-4.8); Lymphocytes % (A) 22 %; MCH 30.6 pg (25.0-35.0); MCHC 33.1 g/dL (31.0-37.0); MCV 92.6 fL (80.0-100.0); Mean Platelet Volume 7.2; Monocytes # (A) 0.3 k/uL (0-1.0); Monocytes % (A) 3 %; Neutrophils # (A) 8.3 k/uL (1.3-7.7); Neutrophils % (A) 71 %; Platelet Count 388 k/uL (150-450); RBC 3.98 m/uL (3.80-5.40); RDW 12.4 % (11.5-15.5); WBC 11.6 k/uL (3.8-10.6)
[2024-12-23 18:53] LABS: African American GFR (CKD) >90 (>60 ml/min/1.73 sqM); Anion Gap 15 mmol/L; Blood Urea Nitrogen 11 mg/dL (7-17); Calcium 9.5 mg/dL (8.4-10.2); Carbon Dioxide 21 mmol/L (22-30); Chloride 103 mmol/L (98-107); Glucose 124 mg/dL (74-99); Magnesium 1.3 mg/dL (1.6-2.3); Non-African American GFR(CKD) >90 (>60 ml/min/1.73 sqM); Potassium 3.4 mmol/L (3.5-5.1); Sodium 139 mmol/L (137-145)
[2024-12-23] MEDS ORDERED: Magnesium Replacement Protocol 1 EACH MISC MISCELLANE PRN (18:55)
[2024-12-23] MEDS ORDERED: Potassium Replacement Protocol 1 EACH MISC MISCELLANE PRN (18:55)
[2024-12-23] MEDS: SODIUM CHLORIDE 0.9% 1,000 ML IV SCH (20:34)
[2024-12-23] MEDS: POTASSIUM CHLORIDE 10 MEQ in WATER FOR INJECTION 1 100ML.BAG IVPB SCH (20:34)
[2024-12-23] MEDS: MAGNESIUM SULFATE-D5W PMX 1 GM in DEXTROSE/WATER 1 100ML.BAG IVPB SCH (21:34)
[2024-12-24] MEDS: LIDOCAINE 1% INJ 10MG/ML (20 ML MDV) SQ ONE (12:08)
--- NOTE | 2024-12-24 13:03 | P.PN ---
Progress Note - Text 21-nff[age]-year-old white female patient had abscess left foot between the second and third toe we did I&D the treating with IV antibiotic and local wound care today we have changed the dressing we will hold the Santyl cream at this point we use silver alginate as an dressing was applied patient tarted the procedure well dressing will be changed every 48 hours patient IV antibiotic under care of infectious disease if patient goes home then will be discharged she will follow in the wound clinic on Tuesday
--- NOTE | 2024-12-24 14:20 | PN ---
PROGRESS NOTE A 39-year-old female. The patient had an abscess on the plantar aspect of the foot. The patient had an I and D done. The patient is on IV antibiotic and nonweightbearing. We will change the dressing tomorrow and we will use Santyl cream. MMROSALINDAL / ANIYAN: [id number] /
--- NOTE | 2024-12-24 14:21 | PN ---
PROGRESS NOTE The patient has a history of wound on her left foot involving the plantar and dorsal aspect of the foot. The patient had a large abscess, which was drained. Culture came back as Staph, under care of Infectious Disease. The patient has incision on the web between 2nd and 3rd toe web space. Minimal draining was noted. Today, we have changed the dressing. We will be using Santyl cream. The patient complains of lot of pain during the change of dressing. We will change the next dressing on Tuesday. Advised offloading the left foot and the patient will continue the IV antibiotic and local wound care. MMODL / IJN: [id number] /
--- NOTE | 2024-12-24 14:21 | PN ---
PROGRESS NOTE DATE OF SERVICE: 12/21/2024 CHIEF COMPLAINT: Abscess and cellulitis of left foot. HISTORY OF PRESENT ILLNESS: This lady is doing well other than complaints of pain. PHYSICAL EXAMINATION: VITAL SIGNS: She is afebrile. CHEST: Clear. CARDIAC: Normal. EXTREMITIES: The foot is dressed. IMPRESSION: Status post incision and drainage of abscess of the left foot with cellulitis. PLAN: Continue with elevation, IV fluids, and IV antibiotics. MMODL / IJN: [id number] /
--- NOTE | 2024-12-24 14:22 | PN ---
PROGRESS NOTE DATE OF SERVICE: 12/23/2024 CHIEF COMPLAINT: Abscess and cellulitis of the left foot. HISTORY OF PRESENT ILLNESS: This lady is doing fairly well. Pain is improved. It is not clear when she will be able to be discharged. PHYSICAL EXAMINATION: VITAL SIGNS: She is afebrile. CHEST: Clear. CARDIAC: Normal. ABDOMEN: Soft, nontender. EXTREMITIES: Foot is dressed. IMPRESSION: Abscess of the left foot with cellulitis. PLAN: Continue with IV antibiotics until discharge. MMODL / IJN: [id number] /
--- NOTE | 2024-12-24 14:22 | PN ---
PROGRESS NOTE DATE OF SERVICE: 12/22/2024 CHIEF COMPLAINT: Abscess and cellulitis of the left foot. HISTORY OF PRESENT ILLNESS: This lady is doing a little bit better. Pain is still a problem for her. PHYSICAL EXAMINATION: VITAL SIGNS: She is afebrile. CHEST: Clear. CARDIAC: Normal. ABDOMEN: Soft, nontender. EXTREMITIES: The foot is dressed. IMPRESSION: Abscess in the left foot with cellulitis. PLAN: Continue with IV antibiotics. MMODL / IJN: [id number] /
--- NOTE | 2024-12-24 15:13 | PN ---
PROGRESS NOTE CHIEF COMPLAINT: Abscess and cellulitis of the left foot. HISTORY OF PRESENT ILLNESS: This lady is stable and can probably go home once she is cleared by Surgery and Infectious Disease. MMODL / IJN: [id number] /
--- NOTE | 2024-12-25 12:42 | P.PN ---
Subjective Progress Note Date: 12/24/24 Principal diagnosis: Reason for follow-up is left foot abscess Patient is a 39-year-old female with a past medical history significant for anxiety presented to the hospital with increasing pain swelling redness to the left foot has been diagnosed with a abscess failing outpatient treatment status post surgical drainage on 12/20/2024. On today's evaluation that is 12/24/2024, patient has been afebrile, patient is breathing comfortably and is currently on room air, patient denies having any significant cough no chest pain, patient denies nausea vomiting or diarrhea and no abdominal pain and no worsening pain to the left foot area. Patient did have a potassium of 4.1 no CBC was done today blood culture have been negative Objective - Vital Signs Vital signs: Vital Signs Temp 98.3 F 12/24/24 08:00 Pulse 72 12/24/24 08:00 Resp 16 12/24/24 08:00 BP 98/62 12/24/24 08:00 Pulse Ox 99 12/24/24 08:00 FiO2 Intake & Output 12/23/24 12/24/24 12/24/24 18:59 06:59 18:59 Intake Total 250 Balance 250 Intake: IV 200 Sodium Chloride 0.9% 1, 200 000 ml @ 20 mls/hr IV . Q24H [facility] Rx#:[id number] Intake, IV Titration 50 Amount ceFAZolin 2 gm In Sodium 50 Chloride 0.9% 50 ml @ 100 mls/hr IVPB Q8HR [facility] Rx# :[id number] Other: Voiding Method Toilet # Voids 3 4 # Bowel Movements 1 - Exam GENERAL DESCRIPTION: Middle-age female lying in bed in no distress RESPIRATORY SYSTEM: Unlabored breathing , clear to auscultation anteriorly HEART: S1 S2 regular rate and rhythm , ABDOMEN: Soft , no tenderness EXTREMITIES: Left foot wound significantly deep surrounding redness decreased no foul-smelling drainage - Labs CBC & Chem 7: 12/23/24 18:30 12/24/24 07:57 Labs: Abnormal Lab Results - Last 24 Hours (Table) 12/23/24 12/23/24 12/23/24 Range/Units 18:20 18:30 18:30 WBC 11.6 H (3.8-10.6) k/uL Neutrophils # 8.3 H (1.3-7.7) k/uL Potassium 3.4 L (3.5-5.1) mmol/L Carbon Dioxide 21 L (22-30) mmol/L Glucose 124 H (74-99) mg/dL POC Glucose (mg/dL) 120 H (70-110) mg/dL Magnesium 1.3 L (1.6-2.3) mg/dL 12/24/24 Range/Units 02:53 WBC (3.8-10.6) k/uL Neutrophils # (1.3-7.7) k/uL Potassium (3.5-5.1) mmol/L Carbon Dioxide (22-30) mmol/L Glucose (74-99) mg/dL POC Glucose (mg/dL) (70-110) mg/dL Magnesium 2.7 H (1.6-2.3) mg/dL Microbiology - Last 24 Hours (Table) 12/20/24 07:45 Anaerobic Culture - Final Foot - Left 12/20/24 07:45 Anaerobic Culture - Final Foot - Left 12/19/24 13:21 Blood Culture - Preliminary Blood 12/19/24 11:37 Blood Culture - Preliminary Blood Assessment and Plan (1) Foot abscess, left Current Visit: Yes Status: Acute Code(s): L02.612 - CUTANEOUS ABSCESS OF LEFT FOOT SNOMED Code(s): 49683604466959155 (2) Failure of outpatient treatment Current Visit: Yes Status: Acute Code(s): Z78.9 - OTHER SPECIFIED HEALTH STATUS SNOMED Code(s): 679991234 (3) Cellulitis of left foot Current Visit: Yes Status: Acute Code(s): L03.116 - CELLULITIS OF LEFT LOWER LIMB SNOMED Code(s): 17747248865558786 (4) Puncture wound of foot Current Visit: No Status: Acute Code(s): S91.339A - PUNCTURE WOUND WITHOUT FOREIGN BODY, UNSP FOOT, INIT ENCNTR SNOMED Code(s): 10843223 Plan: 1patient presented hospital with left foot pain swelling and redness failing outpatient oral Cipro and Augmentin therapy and there is concern for possible development of an abscess on the dorsum aspect as well as on the plantar aspect at the base of the third toe which started as a blister that the patient has ruptured herself and drainage of some purulent material 2-patient is status post surgical drainage of this abscess and culture has been obtained which are currently growing MSSA 3-patient did have a significantly deep wound reports drainage of this abscess with a tendon antibiotics. We recommend PICC line and at least 6-day course of IV antibiotic on discharge preferably cefazolin discussed with the case management coordinator prescription provided Dictation was produced using [employer] dictation software. please excuse any grammatical, word or spelling errors. Time with Patient: Less than 30
--- NOTE | 2024-12-25 12:43 | P.PN ---
Subjective Progress Note Date: 12/25/24 Principal diagnosis: Reason for follow-up is left foot abscess Patient is a 39-year-old female with a past medical history significant for anxiety presented to the hospital with increasing pain swelling redness to the left foot has been diagnosed with a abscess failing outpatient treatment status post surgical drainage on 12/20/2024. On today's evaluation that is 12/25/2024, Patient is afebrile this morning patient denies having any chest pain shortness of breath or cough, the patient is currently on room air, patient denies any abdominal pain no diarrhea no nause a no vomiting, pain to the left foot is currently controlled worse with walking. No new lab has been repeated today blood culture have been negative anaerobe culture negative Objective - Vital Signs Vital signs: Vital Signs Temp 98.1 F 12/25/24 06:55 Pulse 60 12/25/24 06:55 Resp 16 12/25/24 06:55 BP 102/66 12/25/24 06:55 Pulse Ox 95 12/25/24 06:55 FiO2 Intake & Output 12/24/24 12/25/24 12/25/24 18:59 06:59 18:59 Other: Voiding Method Toilet # Voids 2 - Exam GENERAL DESCRIPTION: Middle-age female lying in bed in no distress RESPIRATORY SYSTEM: Unlabored breathing , clear to auscultation anteriorly HEART: S1 S2 regular rate and rhythm , ABDOMEN: Soft , no tenderness EXTREMITIES: Left foot wound currently dressed - Labs CBC & Chem 7: 12/23/24 18:30 12/24/24 07:57 Labs: Microbiology - Last 24 Hours (Table) 12/20/24 07:45 Anaerobic Culture - Final Foot - Left 12/20/24 07:45 Anaerobic Culture - Final Foot - Left Assessment and Plan (1) Foot abscess, left Current Visit: Yes Status: Acute Code(s): L02.612 - CUTANEOUS ABSCESS OF LEFT FOOT SNOMED Code(s): 21475176995474397 (2) Failure of outpatient treatment Current Visit: Yes Status: Acute Code(s): Z78.9 - OTHER SPECIFIED HEALTH STATUS SNOMED Code(s): 624325980 (3) Cellulitis of left foot Current Visit: Yes Status: Acute Code(s): L03.116 - CELLULITIS OF LEFT LOWER LIMB SNOMED Code(s): 26516432397195803 (4) Puncture wound of foot Current Visit: No Status: Acute Code(s): S91.339A - PUNCTURE WOUND WITHOUT FOREIGN BODY, UNSP FOOT, INIT ENCNTR SNOMED Code(s): 23103728 Plan: 1patient presented hospital with left foot pain swelling and redness failing o utpatient oral Cipro and Augmentin therapy and there is concern for possible development of an abscess on the dorsum aspect as well as on the plantar aspect at the base of the third toe which started as a blister that the patient has ruptured herself and drainage of some purulent material 2-patient is status post surgical drainage of this abscess and culture has been obtained which are currently growing MSSA 3-patient did have a significantly deep wound status post drainage of this abscess with a tendon exposed 4we recommend PICC line and at least 6-week course of IV antibiotic on discharge preferably cefazolin, the case advocate currently working on outpatient IV antibiotics arrangement Dictation was produced using [employer] dictation software. please excuse any grammatical, word or spelling errors. Time with Patient: Less than 30
--- NOTE | 2024-12-25 14:51 | P.PN ---
Progress Note - Text 39-year-old white female patient had abscess left foot plantar aspect between second and third toe with drained abscess with IV antibiotic under care of infectious disease patient had a PICC line placed we will changing dressing daily with 6 silver alginate patient is an IV antibiotic and under care of infectious disease
--- NOTE | 2024-12-26 02:40 | PN ---
PROGRESS NOTE CHIEF COMPLAINT: Abscess of the left foot. HISTORY OF PRESENT ILLNESS: This lady is doing well and could go home anytime. PHYSICAL EXAMINATION: GENERAL: She is afebrile. CHEST: Clear. CARDIAC EXAM: Normal. IMPRESSION: Abscess of the left foot. PLAN: Home anytime. MMMODESTO / ANIYAN: [id number] /
--- NOTE | 2024-12-26 11:56 | P.PN ---
Subjective Progress Note Date: 12/26/24 Principal diagnosis: Reason for follow-up is left foot abscess Patient is a 39-year-old female with a past medical history significant for anxiety presented to the hospital with increasing pain swelling redness to the left foot has been diagnosed with a abscess failing outpatient treatment status post surgical drainage on 12/20/2024. On today's evaluation that is 12/26/2024,the patient denies any fever or any chills, patient is breathing comfortably on room air, the patient denies chest pain shortness of breath and no significant cough, patient denies abdominal p ain, no nausea vomiting or diarrhea. Pain to the left foot is currently controlled. Patient did not have any lab draw today blood culture remains to be negative anaerobe culture negative Objective - Vital Signs Vital signs: Vital Signs Temp 98.4 F 12/26/24 07:10 Pulse 68 12/26/24 07:10 Resp 16 12/26/24 07:10 BP 102/67 12/26/24 07:10 Pulse Ox 96 12/26/24 07:10 FiO2 Intake & Output 12/25/24 12/26/24 12/26/24 18:59 06:59 18:59 Intake Total 1000 1200 Balance 1000 1200 Weight 45.359 kg Intake: Intake, IV Titration 1000 Amount Sodium Chloride 0.9% 1, 900 000 ml @ 75 mls/hr IV . [id number] REPLACED BY [facility] Rx#:[id number] ceFAZolin 2 gm In Sodium 100 Chloride 0.9% 50 ml @ 100 mls/hr IVPB Q8HR REPLACED BY [facility] Rx# :[id number] Oral 1200 Other: Voiding Method Toilet # Voids 3 2 - Exam GENERAL DESCRIPTION: Middle-age female lying in bed in no distress RESPIRATORY SYSTEM: Unlabored breathing , clear to auscultation anteriorly HEART: S1 S2 regular rate and rhythm , ABDOMEN: Soft , no tenderness EXTREMITIES: Left foot wound currently dressed - Labs CBC & Chem 7: 12/23/24 18:30 12/24/24 07:57 Labs: Microbiology - Last 24 Hours (Table) 12/19/24 13:21 Blood Culture - Final Blood 12/19/24 11:37 Blood Culture - Final Blood Assessment and Plan (1) Foot abscess, left Current Visit: Yes Status: Acute Code(s): L02.612 - CUTANEOUS ABSCESS OF LEFT FOOT SNOMED Code(s): 40317522695614608 (2) Failure of outpatient treatment Current Visit: Yes Status: Acute Code(s): Z78.9 - OTHER SPECIFIED HEALTH STATUS SNOMED Code(s): 580365229 (3) Cellulitis of left foot Current Visit: Yes Status: Acute Code(s): L03.116 - CELLULITIS OF LEFT LOWER LIMB SNOMED Code(s): 00615522893436257 (4) Puncture wound of foot Current Visit: No Status: Acute Code(s): S91.339A - PUNCTURE WOUND WITHOUT FOREIGN BODY, UNSP FOOT, INIT ENCNTR SNOMED Code(s): 87729216 Plan: 1patient presented hospital with left foot pain swelling and redness failing outpatient oral Cipro and Augmentin therapy and there is concern for possible development of an abscess on the dorsum aspect as well as on the plantar aspect at the base of the third toe which started as a blister that the patient has ruptured herself and drainage of some purulent material 2-patient is status post surgical drainage of this abscess and culture has been obtained which are currently growing MSSA 3-patient did have a significantly deep wound status post drainage of this abscess with a tendon exposed 4we recommend PICC line and at least 6-week course of IV antibiotic on discharge preferably cefazolin, however because of her insurance patient is not able to get IV cefazolin at home and has to go to the infusion clinic in the hospital hence antibiotic has been switched over to Rocephin 2 g daily will give her a dose before discharge and close outpatient follow-up Dictation was produced using [employer] software. please excuse any grammatical, word or spelling errors.
--- NOTE | 2024-12-27 02:25 | PN ---
PROGRESS NOTE DATE OF SERVICE: 12/26/2024 CHIEF COMPLAINT: Abscess of left foot. HISTORY OF PRESENT ILLNESS: This lady is doing well. Infectious Disease feels that she needs long-term IV antibiotics. I am a little bit concerned about sending this lady home with an IV. PHYSICAL EXAMINATION: VITAL SIGNS: Normal. CHEST: Clear. CARDIAC: Normal. IMPRESSION: Abscess and cellulitis of the left foot. PLAN: Await discharge planning. MMODL / IJN: [id number] /
--- NOTE | 2024-12-27 15:02 | P.PN ---
Subjective Progress Note Date: 12/27/24 Principal diagnosis: Reason for follow-up is left foot abscess Patient is a 39-year-old female with a past medical history significant for anxiety presented to the hospital with increasing pain swelling redness to the left foot has been diagnosed with a abscess failing outpatient treatment status post surgical drainage on 12/20/2024. On today's evaluation that is 12/27/2024,the patient remains to be afebrile, patient is on room air not requiring supplemental oxygen and denies any shortness of breath no chest pain or cough.Patient denies having any nausea or vomiting, no abdominal pain and no diarrhea or any worsening pain to the left foot area. Patient did not have a lab draw today blood culture and anaerobic culture has been negative Objective - Vital Signs Vital signs: Vital Signs Temp 98.5 F 12/27/24 07:25 Pulse 67 12/27/24 07:25 Resp 17 12/27/24 07:25 BP 113/74 12/27/24 07:25 Pulse Ox 97 12/27/24 07:25 FiO2 Intake & Output 12/26/24 12/27/24 12/27/24 18:59 06:59 18:59 Intake Total 1500 Output Total 3 Balance -3 1500 Intake: Oral 1500 Output: Urine 3 Other: Voiding Method Toilet # Voids 2 - Exam GENERAL DESCRIPTION: Middle-age female lying in bed in no distress RESPIRATORY SYSTEM: Unlabored breathing , clear to auscultation anteriorly HEART: S1 S2 regular rate and rhythm , ABDOMEN: Soft , no tenderness EXTREMITIES: Left foot wound currently dressed - Labs CBC & Chem 7: 12/23/24 18:30 12/24/24 07:57 Assessment and Plan (1) Foot abscess, left Current Visit: Yes Status: Acute Code(s): L02.612 - CUTANEOUS ABSCESS OF LEFT FOOT SNOMED Code(s): 53219456631822280 (2) Failure of outpatient treatment Current Visit: Yes Status: Acute Code(s): Z78.9 - OTHER SPECIFIED HEALTH STATUS SNOMED Code(s): 241325524 (3) Cellulitis of left foot Current Visit: Yes Status: Acute Code(s): L03.116 - CELLULITIS OF LEFT LOWER LIMB SNOMED Code(s): 29288531920448691 (4) Puncture wound of foot Current Visit: No Status: Acute Code(s): S91.339A - PUNCTURE WOUND WITHOUT FOREIGN BODY, UNSP FOOT, INIT ENCNTR SNOMED Code(s): 27720366 Plan: 1patient presented hospital with left foot pain swelling and redness failing outpatient oral Cipro and Augmentin therapy and there is concern for possible development of an abscess on the dorsum aspect as well as on the plantar aspect at the base of the third toe which started as a blister that the patient has ruptured herself and drainage of some purulent material 2-patient is status post surgical drainage of this abscess and culture has been obtained which are currently growing MSSA 3-patient did have a significantly deep wound status post drainage of this abscess with a tendon exposed 4patient is currently on Rocephin 2 g daily waiting for surgical clearance before discharge and monitor clinical course closely Dictation was produced using [employer] dictation software. please excuse any grammatical, word or spelling errors. Time with Patient: Less than 30
[2024-12-27] MEDS: ACETAMINOPHEN TAB 325 MG TAB PO PRN (20:33)
--- NOTE | 2024-12-27 22:52 | PN ---
PROGRESS NOTE SUBJECTIVE: A 39-year-old female patient, who had abscess on the plantar aspect of the foot between third and second toe. We did the I and D. The patient is under the care of Infectious Disease, on IV antibiotics. We have changed the dressing today. We placed a silver alginate. Minimum discharge noted. PLAN: If the patient goes home tomorrow, we will follow up in the [facility]ound Clinic on Tuesday and the patient will be on antibiotic per Infectious Disease. MMODL / IJN: [id number] /
--- NOTE | 2024-12-28 01:16 | PN ---
PROGRESS NOTE CHIEF COMPLAINT: Abscess of the left foot. HISTORY OF PRESENT ILLNESS: This lady is still in the hospital. Apparently, there are problems setting up care for her foot and IV antibiotics. PHYSICAL EXAMINATION: VITAL SIGNS: Normal. CHEST: Clear. CARDIAC EXAM: Normal. IMPRESSION: Abscess and cellulitis of the left foot. PLAN: Home once IV antibiotic and wound management plans are established. MMODL / IJN: [id number] /
[2024-12-28 08:46] VITALS: TEMP 98.5
--- NOTE | 2024-12-28 12:58 | PN ---
PROGRESS NOTE DATE OF SERVICE: 12/28/2024 CHIEF COMPLAINT: Abscess and cellulitis of the left foot. HISTORY OF PRESENT ILLNESS: This lady is still in the hospital and apparently is waiting for arrangements to be made for outpatient IV antibiotic management. PHYSICAL EXAMINATION: GENERAL: She is afebrile. CHEST: Clear. CARDIAC: Normal. IMPRESSION: Status post abscess and cellulitis of left foot. PLAN: Await discharge plan. MMODL / IJN: [id number] /
[2024-12-28 14:09] VITALS: BP 138/64; PULSE 77; RESP 19
--- NOTE | 2024-12-28 15:56 | P.PN ---
Subjective Progress Note Date: 12/28/24 Principal diagnosis: Reason for follow-up is left foot abscess Patient is a 39-year-old female with a past medical history significant for anxiety presented to the hospital with increasing pain swelling redness to the left foot has been diagnosed with a abscess failing outpatient treatment status post surgical drainage on 12/20/2024. On today's evaluation that is 12/28/2024, the patient continues to be afebrile, the patient is on room air and breathing comfortably, the Pt denies having any chest pain or cough, the patient denies having any abdominal pain no vomiting or any diarrhea still complaining of pain to the left foot but no worsening. No new lab has been obtained today Objective - Vital Signs Vital signs: Vital Signs Temp 98.5 F 12/28/24 07:19 Pulse 66 12/28/24 07:19 Resp 16 12/28/24 07:30 BP 112/66 12/28/24 07:19 Pulse Ox 98 12/28/24 07:19 FiO2 Intake & Output 12/27/24 12/28/24 12/28/24 18:59 06:59 18:59 Intake Total 1000 Balance 1000 Intake: Oral 1000 Other: Voiding Method Toilet Toilet # Voids 3 2 - Exam GENERAL DESCRIPTION: Middle-age female lying in bed in no distress RESPIRATORY SYSTEM: Unlabored breathing , clear to auscultation anteriorly HEART: S1 S2 regular rate and rhythm , ABDOMEN: Soft , no tenderness EXTREMITIES: Left foot wound currently dressed - Labs CBC & Chem 7: 12/23/24 18:30 12/24/24 07:57 Assessment and Plan (1) Foot abscess, left Current Visit: Yes Status: Acute Code(s): L02.612 - CUTANEOUS ABSCESS OF LEFT FOOT SNOMED Code(s): 28222790000717005 (2) Failure of outpatient treatment Current Visit: Yes Status: Acute Code(s): Z78.9 - OTHER SPECIFIED HEALTH STATUS SNOMED Code(s): 345779507 (3) Cellulitis of left foot Current Visit: Yes Status: Acute Code(s): L03.116 - CELLULITIS OF LEFT LOWER LIMB SNOMED Code(s): 68521749075915174 (4) Puncture wound of foot Current Visit: No Status: Acute Code(s): S91.339A - PUNCTURE WOUND WITHOUT FOREIGN BODY, UNSP FOOT, INIT ENCNTR SNOMED Code(s): 09024921 Plan: 1patient presented hospital with left foot pain swelling and redness failing outpatient oral Cipro and Augmentin therapy and there is concern for possible development of an abscess on the dorsum aspect as well as on the plantar aspect at the base of the third toe which started as a blister that the patient has ruptured herself and drainage of some purulent material 2-patient is status post surgical drainage of this abscess and culture has been obtained which are currently growing MSSA 3-patient did have a significantly deep wound status post drainage of this abscess with a tendon exposed 4patient to continue with IV Rocephin await vascular surgery clearance before discharge outpatient antibiotic has been arranged for the patient will check CBC and BMP with a.m. lab Dictation was produced using [employer] dictation software. please excuse any gram matical, word or spelling errors. Time with Patient: Less than 30
[2024-12-28] MEDS ORDERED: traMADol 50 MG TAB PO SCH (16:00)
--- NOTE | 2024-12-29 16:07 | DS ---
DISCHARGE SUMMARY CHIEF COMPLAINT: Pain, swelling, and redness in the left foot. HISTORY OF PRESENT ILLNESS AND PHYSICAL EXAMINATION: Details of this lady's history and physical can be found in the initial workup. LABORATORY STUDIES: While she was in the hospital, she had laboratory studies, details of which can be found in the laboratory section of her chart. COURSE IN THE HOSPITAL: After admission, she was placed on bedrest, started on intravenous fluids and IV antibiotics. She was seen by surgery and taken for incision and drainage of the abscess. Postoperatively, she was managed by Infectious Disease. She was doing well and felt she could be discharged on the arrangements were made for her to have outpatient IV antibiotics via PICC line as well as local wound care. She will be followed up in my office in a week or so. FINAL DIAGNOSES: Abscess and cellulitis of the left foot. OPERATIONS: Incision and drainage. CONSULTATIONS: Vascular Surgery and Infectious Disease. VU / ANAI: [id number] /
== END 2024-12-28 16:55 | disposition home health service (06) | DRG 603 ==
LOC: EC 11:00 → 6NMEDSUR 13:31 → OBSVTOIN 13:31 → 6NMEDSUR 17:24 → 1SOBS 19:51 → 4SSUR 12-20 18:06
PROVIDERS: ADMIT Family Medicine; ATTEND Family Medicine
PROC: 0J9R0ZX Drainage of Left Foot Subcutaneous Tissue and Fascia, Open Approach, Diagnostic (ICD-10-PCS; principal; 2024-12-20 07:00)
PROC: 05HC33Z Insertion of Infusion Device into Left Basilic Vein, Percutaneous Approach (ICD-10-PCS; 2024-12-25)
DX: L02.612 Cutaneous abscess of left foot (principal); L03.116 Cellulitis of left lower limb; W22.8XXD Striking against or struck by other objects, subsequent encounter; S91.339 Puncture wound without foreign body, unspecified foot; F17.290 Nicotine dependence, other tobacco product, uncomplicated; F41.9 Anxiety disorder, unspecified; Z88.6 Allergy status to analgesic agent; Z88.1 Allergy status to other antibiotic agents; Z88.5 Allergy status to narcotic agent; Z28.21 Immunization not carried out because of patient refusal
CPT/HCPCS: 36415; 36573; 80048; 80053; 80202; 81025; 82565; 83605; 83735; 84132; 85025; 85652; 86140; 87040; 87070; 87075; 87077; 87186; 87205; 96365; 96367; 96375; 99285